=== PATIENT | male | born 1975 | race Two or more races ===

== ENCOUNTER 2016-12-10 21:48 | Inpatient (IN) | payer MEDICAID ==
[~2016-12-10] VITALS: Ht 152.4 cm; Wt 64.8 kg
[2016-12-10 22:26] LABS: Basophils # (auto) 0 uL; DEFINITIVE VIEW TRANSMISSION; Eosinophils # (auto) 0 uL; Eosinophils % (auto) 0.1 % (0.0-7.0); Hematocrit 26.9 % (41.0-53.0); Hemoglobin 8.3 g/dL (13.5-17.5); Lymphocytes # (auto) 0.6 uL; Lymphocytes % (auto) 20.6 % (10.0-50.0); Mean Corpuscular Hemoglobin 20.8 pg (28.0-32.0); Mean Corpuscular Hgb Conc. 30.7 g/dL (32.0-36.0); Mean Corpuscular Volume 67.5 fL (80.0-100.0); Mean Platelet Volume 7.8 fL (7.4-10.4); Monocytes # (auto) 0.4 uL; Neutrophils # (auto) 1.8 uL; Neutrophils % (auto) 66.3 % (37.0-80.0); Platelet Count (auto) 90 10^3/uL (140-450); Red Cell Distribution Width 19.8 % (11.6-16.0); White Blood Cell 2.7 10^3/uL (4.4-10.8)
[2016-12-10 22:41] LABS: INR 1.04 (0.9-1.15); Partial Thromboplastin Time 22.3 sec (22.64-33.71); Prothrombin Time 11.2 sec (9.37-12.3)
[2016-12-10] MEDS ORDERED: LORazepam 2MG/ML-1ML VIAL IV ONE (22:45)
[2016-12-10 22:50] LABS: Albumin 3.7 g/dL (3.4-5.0); BUN/Creatinine Ratio 26.6; Calcium 8.1 mg/dL (8.5-10.1); Hypochromia Moderate; Microcytosis Marked; Potassium 3.5 mmol/L (3.5-5.1)
[2016-12-10 22:51] LABS: Anisocytosis Slight; Polychromasia Slight
[2016-12-10 22:52] LABS: Ovalocytes FEW; Platelet Estimate Decreased; Stomatocytes Few
[2016-12-10 22:53] LABS: Bilirubin, Total 0.3 mg/dL (0.2-1.0); Total Protein 7.4 g/dL (6.4-8.2)
[2016-12-11 01:22] LABS: Urine Bilirubin Negative (Negative); Urine Blood Negative /uL (Negative); Urine Color Yellow (Yellow); Urine Hyaline Cast FEW /lpf (0 - 2); Urine Ketone TRACE (Negative); Urine Mucus FEW (None Seen); Urine Nitrite Negative (Negative); Urine RBC <1 /hpf (0 - 3); Urine Urobilinogen Normal (Negative); Urine pH 5.5 (5.0-8.0)
[2016-12-11 01:23] LABS: Urine Glucose 2+ mg/dL (Normal)
[2016-12-11] MEDS ORDERED: NITROGLYCERIN 0.4 MG SL TAB SL PRN (06:45)
[2016-12-11] MEDS ORDERED: HYDROcodone-ACET 5/325MG TAB PO PRN (06:45)
[2016-12-11] MEDS ORDERED: MORPHINE SULF INJ 2 MG/ML SYRINGE 1ML IV PRN ×2 (06:45)
[2016-12-11] MEDS ORDERED: ACETAMINOPHEN 325 MG TAB PO PRN (06:45)
[2016-12-11] MEDS ORDERED: ONDANSETRON HCL 4 MG/2 ML VIAL IV PRN (06:45)
[2016-12-11] MEDS ORDERED: TEMAZEPAM 15 MG CAP PO PRN (06:45)
[2016-12-11] MEDS: FAMOTIDINE 20 MG TAB PO SCH ×2 (08:30→22:18)
[2016-12-11] MEDS: ENOXAPARIN SOD 40 MG/0.4 ML SYRINGE SC SCH (08:30)
[2016-12-11] MEDS: LEVETIRACETAM 500 MG TAB PO SCH ×2 (08:30→22:18)
[2016-12-11] MEDS: PHENYTOIN SODIUM 100 MG CAP PO SCH ×3 (08:30→22:18)
[2016-12-11 15:13] VITALS: BP 136/94
[2016-12-11 20:00] VITALS: BP 121/89
[2016-12-11 22:00] VITALS: BP 121/89
[2016-12-11] MEDS ORDERED: LORazepam 2MG/ML-1ML VIAL IV PRN (23:00)
[2016-12-12 05:00] VITALS: BP 130/87
[2016-12-12] MEDS ORDERED: PHE100C PO (06:49)
[2016-12-12 07:12] LABS: Basophils # (auto) 0 uL; Basophils % (auto) 0.2 % (0.0-2.0); DEFINITIVE VIEW TRANSMISSION; Eosinophils # (auto) 0.1 uL; Eosinophils % (auto) 2.3 % (0.0-7.0); Hematocrit 28.6 % (41.0-53.0); Hemoglobin 8.9 g/dL (13.5-17.5); Lymphocytes # (auto) 1.8 uL; Lymphocytes % (auto) 38.7 % (10.0-50.0); Mean Corpuscular Hemoglobin 21.3 pg (28.0-32.0); Mean Corpuscular Hgb Conc. 31.1 g/dL (32.0-36.0); Mean Corpuscular Volume 68.6 fL (80.0-100.0); Mean Platelet Volume 8.1 fL (7.4-10.4); Monocytes # (auto) 0.5 uL; Monocytes % (auto) 10.6 % (0.0-12.0); Neutrophils # (auto) 2.2 uL; Neutrophils % (auto) 48.2 % (37.0-80.0); Platelet Count (auto) 109 10^3/uL (140-450); White Blood Cell 4.5 10^3/uL (4.4-10.8)
[2016-12-12 07:16] LABS: Red Cell Distribution Width 20.9 % (11.6-16.0)
[2016-12-12 07:37] LABS: Albumin 3.5 g/dL (3.4-5.0); BUN/Creatinine Ratio 16.3; Bilirubin, Total 0.4 mg/dL (0.2-1.0); Calcium 8.3 mg/dL (8.5-10.1); Potassium 4.6 mmol/L (3.5-5.1); Total Protein 7.7 g/dL (6.4-8.2)
[2016-12-12 08:05] LABS: Hypochromia Moderate; Microcytosis Marked; Ovalocytes FEW; Platelet Estimate Decreased
[2016-12-12 08:06] LABS: Anisocytosis Slight
[2016-12-12 08:40] VITALS: BP 135/90
[2016-12-12] MEDS: ENOXAPARIN SOD 40 MG/0.4 ML SYRINGE SC SCH (09:55)
[2016-12-12] MEDS: FAMOTIDINE 20 MG TAB PO SCH ×2 (09:55→22:08)
[2016-12-12 12:35] VITALS: BP 127/95
[2016-12-12 15:00] VITALS: BP 126/87
[2016-12-12 22:00] VITALS: BP 122/85
[2016-12-13 05:30] VITALS: BP 127/80
[2016-12-13 06:13] LABS: Basophils # (auto) 0 uL; DEFINITIVE VIEW TRANSMISSION; Eosinophils # (auto) 0.1 uL; Lymphocytes # (auto) 1.3 uL; Mean Platelet Volume 8.3 fL (7.4-10.4); Monocytes # (auto) 0.6 uL; White Blood Cell 3.9 10^3/uL (4.4-10.8)
[2016-12-13 06:17] LABS: Basophils % (auto) 0.1 % (0.0-2.0); Eosinophils % (auto) 2.2 % (0.0-7.0); Hematocrit 28.6 % (41.0-53.0); Hemoglobin 8.7 g/dL (13.5-17.5); Lymphocytes % (auto) 34.3 % (10.0-50.0); Mean Corpuscular Hgb Conc. 30.5 g/dL (32.0-36.0); Monocytes % (auto) 14.9 % (0.0-12.0); Neutrophils # (auto) 1.9 uL; Neutrophils % (auto) 48.5 % (37.0-80.0); Platelet Count (auto) 119 10^3/uL (140-450)
[2016-12-13 06:20] LABS: Red Cell Distribution Width 21.1 % (11.6-16.0)
[2016-12-13 06:30] LABS: Potassium 4.3 mmol/L (3.5-5.1)
[2016-12-13 06:39] LABS: BUN/Creatinine Ratio 32.5; Calcium 8.2 mg/dL (8.5-10.1)
[2016-12-13 06:50] LABS: Platelet Estimate Decreased
[2016-12-13 06:51] LABS: Anisocytosis Moderate; Hypochromia Moderate; Microcytosis Marked; Ovalocytes FEW
[2016-12-13 09:00] VITALS: BP 127/112
[2016-12-13] MEDS: FAMOTIDINE 20 MG TAB PO SCH ×2 (09:45→21:54)
[2016-12-13] MEDS: ENOXAPARIN SOD 40 MG/0.4 ML SYRINGE SC SCH (09:45)
[2016-12-13 13:00] VITALS: BP 108/68
[2016-12-13 17:00] VITALS: BP 147/76
[2016-12-13] MEDS: PHENYTOIN SODIUM 100 MG CAP PO SCH (21:54)
[2016-12-13 21:58] VITALS: BP 124/83
[2016-12-14 05:00] VITALS: BP 118/83
[2016-12-14 05:58] LABS: Basophils # (auto) 0 uL; Basophils % (auto) 0.1 % (0.0-2.0); DEFINITIVE VIEW TRANSMISSION; Eosinophils # (auto) 0.2 uL; Eosinophils % (auto) 4.5 % (0.0-7.0); Hematocrit 28.2 % (41.0-53.0); Hemoglobin 8.8 g/dL (13.5-17.5); Lymphocytes # (auto) 1.3 uL; Lymphocytes % (auto) 31.1 % (10.0-50.0); Mean Corpuscular Hemoglobin 20.9 pg (28.0-32.0); Mean Corpuscular Volume 67.3 fL (80.0-100.0); Mean Platelet Volume 8.2 fL (7.4-10.4); Monocytes # (auto) 0.5 uL; Monocytes % (auto) 12.3 % (0.0-12.0); Neutrophils # (auto) 2.2 uL; Platelet Count (auto) 141 10^3/uL (140-450); White Blood Cell 4.2 10^3/uL (4.4-10.8)
[2016-12-14 06:03] LABS: Red Cell Distribution Width 20.6 % (11.6-16.0)
[2016-12-14 06:04] LABS: Potassium 4.3 mmol/L (3.5-5.1)
[2016-12-14 06:12] LABS: Albumin 3.2 g/dL (3.4-5.0); BUN/Creatinine Ratio 28.9; Calcium 8.3 mg/dL (8.5-10.1)
[2016-12-14 06:15] LABS: Bilirubin, Total 0.4 mg/dL (0.2-1.0); Total Protein 7.5 g/dL (6.4-8.2)
[2016-12-14 07:20] LABS: Platelet Estimate Adequate
[2016-12-14 07:21] LABS: Anisocytosis Moderate; Hypochromia Moderate; Microcytosis Moderate; Polychromasia Slight
[2016-12-14 07:23] LABS: Hypersegmented Neutrophils Present
[2016-12-14 07:40] VITALS: BP 125/74
[2016-12-14 09:11] VITALS: BP 125/74
[2016-12-14] MEDS: ENOXAPARIN SOD 40 MG/0.4 ML SYRINGE SC SCH (09:47)
[2016-12-14] MEDS: PHENYTOIN SODIUM 100 MG CAP PO SCH (09:47)
[2016-12-14] MEDS: FAMOTIDINE 20 MG TAB PO SCH (09:47)
[2016-12-14 13:00] VITALS: BP 123/66
[2016-12-14 17:14] VITALS: BP 122/96
[2016-12-14 17:40] VITALS: BP 122/96
== END 2016-12-14 18:30 | disposition home or self-care (01) | DRG 53 ==
LOC: ER 22:04 → TELE 22:05 → TELE-WESTW 12-11 14:01
PROVIDERS: ADMIT Internal Medicine; ATTEND Internal Medicine Pulmonary Disease
DX: G40.409 Other generalized epilepsy and epileptic syndromes, not intractable, without status epilepticus (principal); G93.7 Reye's syndrome; G93.89 Other specified disorders of brain; G80.0 Spastic quadriplegic cerebral palsy; G80.9 Cerebral palsy, unspecified; D64.9 Anemia, unspecified; F79 Unspecified intellectual disabilities; Z74.01 Bed confinement status; T42.0X5A Adverse effect of hydantoin derivatives, initial encounter; Z71.89 Other specified counseling; Z86.73 Personal history of transient ischemic attack (TIA), and cerebral infarction without residual deficits
CPT/HCPCS: 36415; 51702; 70450; 80048; 80053; 80185; 80307; 81001; 82140; 85025; 85610; 85730; 93005; 96372; 96374; A4565